=== PATIENT | female | born 1990 | race Caucasian/White ===

== ENCOUNTER 2022-11-23 12:55 | Day surgery (SDC) | payer OTHER, SELFPAY ==
[2022-11-23 08:01] VITALS: BMI 25.4
--- NOTE | 2022-11-23 08:12 | PC.NURSE ---
Report to the Outpatient Waiting Room, entrance under the green pavilion located off [facility], at time __1:00PM on date __11/23/22 . Planned Procedure Time: __3:00PM . Time changes happen often and if your time is changed the preop area will call you the afternoon before. - You and your visitor will be asked to self-screen and do not enter if you have any COVID symptoms. - A mask is optional within the hospital at this time. Patients may have clear liquids (water, carbonated beverages, clear teas, apple juice) until 3 hours prior to surgery with a maximum of 20 ounces. - No food from midnight until time of surgery Take the following medications with a SIP of water the morning of surgery: __NONE DO NOT STOP ANY OF YOUR OTHER PRESCRIPTION MEDICATIONS PRIOR TO SURGERY ?EXCEPT THE FOLLOWING Medications to discontinue per physician NONE Date to take last dose Please no make-up, nail croatian, hairspray, perfume, deodorant, or body powder the day of surgery. No jewelry (including any body piercings) or valuables the day of surgery, leave them at home. Please take a shower or bath the night before, or the morning of, surgery with an antibacterial soap. Wear comfortable, loose fitting clothing. Children are encouraged to wear pajamas. - Jewelry must be removed prior to entering the operating room. Rings and piercings that are not removed may be cut off. - The hospital will not accept responsibility for valuables. - Please leave all valuables, including medications, at home the day of surgery. If you are going home after surgery, a licensed route sales delivery driver must drive you home. - NO public transportation without another adult if you receive anesthesia. - We recommend that an adult stay with you for 24 hours following discharge. - We also recommend that you do not drive, make important decision, drink alcoholic beverages, or take any drugs that were not prescribed by your health care provider for at least 24 hours after your discharge time. Follow any additional instructions given to you from your surgeon. If you or anyone in your household have experienced Covid symptoms in the past week, please notify your surgeon or the nurse liaison at the phone number below for possible testing. Telephone instructions given to ___PATIENT and asked if any additional questions and then verbalized understanding. Patient advised to call surgeon office or pre surgery nurse liaison [phone] if any additional questions.
[2022-11-23] MEDS: ACETAMINOPHEN 500 MG TABLET 1000 MG PO (13:27)
[2022-11-23 13:32] VITALS: BP 118/72; RESP 16; O2SAT 100
--- NOTE | 2022-11-23 14:28 | P.PNAN_ITS ---
Anes - Initial Pre Proc Eval Procedure: Operation Date: 11/23/22 15:00 Proposed Procedures p Suction Dilatation and Curettage - Santiago Davis MD Date/Time: 11/23/22 14:28 Surgeon: Santiago Davis MD Pre Op Diagnosis: missed AB Patient Data Age: 32 Gender: F Height: 1.6 m Weight: 63.8 kg Last Vital Signs Resp 16 11/23/22 13:32 BP 118/72 11/23/22 13:32 Pulse Ox 100 11/23/22 13:32 O2 Del Method Room Air 11/23/22 13:32 Allergies Allergy/AdvReac Type Severity Reaction Status Date / Time No Known Allergies Allergy Verified 11/23/22 12:57 Home Medications Medication Instructions Recorded Confirmed Type No Home Medications 11/23/22 11/23/22 History Laboratory Tests 11/23/22 13:24 Blood Type O Positive Antibody Screen Negative Screen Not Reportable Baby's Blood Type Not Reportable Baby's CLARE Not Reportable Doses of RhIg Required 0 Patient hx anesthesia problems: none Family hx anesthesia problems: none Results Review: All pre-operative results and documents have been reviewed as part of the pre-operative evaluation. PMFSH Past Medical History Medical History (Updated 11/23/22 @ 14:28 by Len Roa MD) Missed ab Social History Social History Smoking status: Never smoker Living arrangements: with family Additional living arrangements comments: SPOUSE & CHILD Spiritual care concerns: No Anes - Eval Final PreProcedure Day of Procedure 11/23/22 14:28 Patient weight: normal Heart: regular rate and rhythm Lungs: clear to auscultation Airway: Mallampati scale class II Neurological: alert and oriented Last oral intake: >/= 8 hours ASA classification: II Emergent: no Anesthetic plan: proceed Anesthesia type and monitoring: general GIVS and standard monitoring Results Review: All pre-operative results and documents have been reviewed as part of the pre- operative evaluation. Informed Consent: The patient's anesthetic plan and its attendant risks and benefits were discussed with the patient/family/POA. Questions were solicited and answers provided to the satisfaction of the patient/family/POA.
--- NOTE | 2022-11-23 15:05 | WPDHPUPDATE1 ---
History and Physical Update Update Date/Time: 11/23/22 15:05 History and Physical has been reviewed, including an updated exam of the patient. There are NO changes in the patient's condition. Risks, benefits, and alternatives have been discussed and questions answered. Patient agrees to proceed with procedure.
[2022-11-23] MEDS: KETOROLAC 30 MG/ML VIAL (*BKC) IV PUSH (15:33)
[2022-11-23] MEDS: LIDOCAINE HCL 1% PF INJ 5 ML VIAL 10 ML INFILTRATE (15:33)
--- NOTE | 2022-11-23 15:45 | W.PM.PROC2 ---
Procedure Note - Detailed Date of Procedure 11/23/22 Pre-op Diagnosis missed AB Post-op Diagnosis Same Procedure Performed Suction D&C Surgeon Santiago Davis MD Anesthesia MAC Indications missed Findings normal-appearing vulva vagina and cervix to. Moderate amount of products conception within the uterus. 8 cm uterus Description of Procedure the patient was taken the operating room. She was prepped and draped in dorsal lithotomy position after induction of mac anesthesia. A speculum was placed in the vagina. Cervix grasped with tenaculum. The cervix was dilated to about 1 cm Using Desai dilators. A 10. [place]rugu[place] curved curette was used to perform suction D&C. The curette was introduced and vacuum was applied. The curette was removed over all surfaces of the intrauterine cavity multiple times. This was done until all the surfaces were clear and had the familiar grainy texture they can be felt through the instrument. A sharp curette was then used to curettage all the surfaces. The suction cup was then reapplied 1 more time to remove any debris. The instruments were removed. The speculum and tenaculum were removed. The patient tolerated the procedure well. She was taken recovery room stable condition. Estimated Blood Loss 50 Drains No Packing No Pathology Yes Complications No immediate complications Condition Stable Disposition PACU
[2022-11-23 15:46] VITALS: BP 106/54; PULSE 77; RESP 16; O2SAT 97
[2022-11-23] MEDS: LACTATED RINGERS 1,000 ML 30 ML IV CONT (15:46)
[2022-11-23 16:15] VITALS: BP 105/68; PULSE 76; RESP 15
[2022-11-23 16:26] VITALS: BP 107/71; PULSE 63; RESP 16
== END 2022-11-23 16:32 | disposition home or self-care (01) ==
PROVIDERS: Visit Provider Obstetrics & Gynecology
PROC: (CPT 59820; principal; 2022-11-23 15:00)
DX: O02.1 Missed abortion (principal)
CPT/HCPCS: 59820; 36415; 85461; 86850; 86900; 86901; 88305; A9270; J1885; J2250; J2704; J3010; J7120

== ENCOUNTER 2023-09-10 11:05 | Outpatient (RCR) | payer OTHER, SELFPAY ==
[2023-09-10 12:39] VITALS: BP 131/68; PULSE 90
== END 2023-12-09 23:59 | disposition home or self-care (01) ==
LOC: ANHOBOP 11:05
PROVIDERS: Visit Provider Obstetrics & Gynecology
DX: O36.8330 Maternal care for abnormalities of the fetal heart rate or rhythm, third trimester, not applicable or unspecified (principal); Z3A.33 33 weeks gestation of pregnancy
CPT/HCPCS: 59025

== ENCOUNTER 2023-10-17 20:41 | Outpatient (RCR) | payer OTHER, SELFPAY ==
[2023-10-17] VITALS (13 sets, daily range): BP systolic 125–139; BP diastolic 70–79; PULSE 84–106; O2SAT 99–100
--- NOTE | 2023-10-17 21:53 | PC.NURSE ---
Called Dr. Davis, update on pt, tracing, and blood pressure. Orders received to discharge pt with instructions to keep next scheduled appointment and when to return to the unit.
== END 2023-10-18 16:37 | disposition home or self-care (01) ==
LOC: ANHOBOP 20:41
PROVIDERS: Visit Provider Obstetrics & Gynecology
DX: O36.8130 Decreased fetal movements, third trimester, not applicable or unspecified (principal); Z3A.39 39 weeks gestation of pregnancy
CPT/HCPCS: 59025

== ENCOUNTER 2023-10-23 06:51 | Inpatient (IN) | payer OTHER, SELFPAY ==
[2023-10-23] VITALS (77 sets, daily range): BP systolic 82–149; BP diastolic 47–132; PULSE 59–244; RESP 18; TEMP 36.1–36.8; O2SAT 98–100; BMI 31.1
--- NOTE | 2023-10-23 07:31 | P.PNAN_ITS ---
Anes - Eval Pre Procedure Procedure: labor epidural Date/Time: 10/23/23 07:31 Surgeon: liban Preop Diagnosis: pain during labor Pre Op Diagnosis: IOL Patient Data Age: 33 Gender: F Height: Weight: Allergies Allergy/AdvReac Type Severity Reaction Status Date / Time No Known Allergies Allergy Verified 10/17/23 21:27 Home Medications Medication Instructions Recorded Confirmed Type famotidine 20 mg tablet (Pepcid) 20 mg PO BID 10/08/23 10/17/23 History vitamin-ferrous fumarate 1 tablet PO DAILY 10/08/23 10/17/23 History 40 mg iron-folic acid 1 mg tablet Patient hx anesthesia problems: none Family hx anesthesia problems: none Results Review: All pre-operative results and documents have been reviewed as part of the pre- operative evaluation. PMFSH Past Medical History Medical History (Updated 10/03/23 @ 12:02 by Sanket Segura, PharmD) Missed ab Social History Social History Smoking status: Never smoker Living arrangements: with family Additional living arrangements comments: SPOUSE & CHILD Spiritual care concerns: No Exam Day of Procedure 10/23/23 07:31
[2023-10-23] MEDS: LACTATED RINGERS 1,000 ML 125 ML IV CONT ×3 (07:33→16:08)
[2023-10-23] MEDS: AMPICILLIN 2 GM/NS 100 ML 2 GM/100 ML BAG IVPB (07:35)
--- NOTE | 2023-10-23 07:46 | LDADM ---
This patient, Edwige Marin, was admitted to Labor/Delivery/Recovery 104 on 10/23/23 at 06:51. Plans for labor, pain management and were discussed with patient. Patient/family oriented to hospital policies and general routines including ID bracelet, bed and alarms, visiting hours, pain management, procedures, bathroom and other care routines, personal items, smoking policy, room service/diet and guest tray routines, security routines, and visiting hours. Patient/Family are encouraged to report perceived risks to care and to ask questions if they do not understand what they are told or what they should do. See OBIX for further documentation.
[2023-10-23 07:54] LABS: Basophils Percent Auto 0.3 % (0.2-1.2); Eosinophils Absolute Auto 0.1 K/mm3 (0-0.3); Eosinophils Percent Auto 0.6 % (0-4.4); Hematocrit 39.9 % (37.0-47.0); Hemoglobin 12.7 g/dL (12.0-15.0); Immature Granulocyte Absolute 0.09 K/mm3 (0.00-0.031); Immature Granulocyte Percent A 1.2 % (0-0.5); Lymphocytes Absolute Auto 1.33 K/mm3 (0.9-3.2); Mean Corpuscular HGB Conc 31.8 g/dl (32-36); Mean Corpuscular Hemoglobin 28.8 pg (26-34); Mean Corpuscular Volume 90.5 fl (80-100); Monocytes Absolute Auto 0.5 K/mm3 (0.1-0.6); Monocytes Percent Auto 6.8 % (2.6-8.5); Neutrophils Absolute Auto 5.8 K/mm3 (1.3-6.7); Neutrophils Percent Auto 74.1 % (45.5-73.1); Platelet Count Result 204 k/mm3 (150-375); Red Blood Count 4.41 M/mm3 (4.2-5.4); Red Cell Distribution Width 16.4 % (11.5-14.5); White Blood Count 7.8 K/mm3 (4.5-10.0)
[2023-10-23] MEDS: AMPICILLIN 1 GM/NS 50 ML 1 GM/50 ML BAG IVPB ×2 (11:43→16:08)
[2023-10-23] MEDS: ONDANSETRON INJ 4 MG/2 ML VIAL IV PUSH (16:07)
--- NOTE | 2023-10-23 16:58 | PM.IMHP ---
H&P: HPI History of Present Illness Date/Time: 10/23/23 80:30 Chief Complaint: MIL Narrative: Patient is a 33 year old who presents for induction of labor indicated for chronic HTN, not requiring medications. She denies need for maintenance antihypertensives outside of as well. No hx of preeclampsia in prior pregnancies. Denies headaches, vision changes, chest pain, dyspnea, RUQ Pain or epigastric pain. testing has been reactive since 32 weeks. otherwise complicated by low ferritin, otherwise no issues. Good movement, no ctx, LOF, VB. Review of Systems Review of Systems: All systems reviewed & are unremarkable except as noted in HPI and below PMFSH Past Medical History Medical History Missed ab Social History Social History Smoking status: Never smoker Second hand tobacco smoke exposure: No Substance use: never Do You Feel Safe in your Home?: Yes Lack of Transportation: No Lack of Food: Never True Current Housing: I Have Housing Concerned About Future Housing: No Difficulty Paying Gas/Electric Bills: No Difficulty Paying for Meds: No Currently Unemployed: No Education: Bachelor's Degree Difficulty w/ Childcare or Family Care: No Living arrangements: with family Additional living arrangements comments: SPOUSE & CHILD Spiritual care concerns: No Meds Home Medications and Allergies Home Medications Medication Instructions Recorded Confirmed Type famotidine 20 mg tablet (Pepcid) 20 mg PO BID 10/08/23 10/17/23 History vitamin-ferrous fumarate 1 tablet PO DAILY 10/08/23 10/17/23 History 40 mg iron-folic acid 1 mg tablet Allergies Allergy/AdvReac Type Severity Reaction Status Date / Time No Known Allergies Allergy Verified 10/17/23 21:27 Vital Signs Vital Signs - 24 hr 10/23/23 07:40 10/23/23 07:45 10/23/23 08:00 Temperature Pulse Rate 84 80 81 Blood Pressure 131/87 135/87 121/75 Pulse Oximetry Oxygen Delivery 10/23/23 08:15 10/23/23 08:30 10/23/23 09:00 Temperature Pulse Rate 84 76 81 Blood Pressure 116/74 102/52 L 115/77 Pulse Oximetry Oxygen Delivery 10/23/23 09:15 10/23/23 07:30 10/23/23 09:32 Temperature 96.9 F L Pulse Rate 80 82 Blood Pressure 129/63 93/58 L Pulse Oximetry Oxygen Delivery 10/23/23 09:33 10/23/23 09:45 10/23/23 10:00 Temperature Pulse Rate 81 74 86 Blood Pressure 115/61 132/72 123/70 Pulse Oximetry Oxygen Delivery 10/23/23 10:15 10/23/23 10:30 10/23/23 10:45 Temperature Pulse Rate 71 68 71 Blood Pressure 115/47 L 115/53 L 118/49 L Pulse Oximetry Oxygen Delivery 10/23/23 11:00 10/23/23 11:15 10/23/23 11:30 Temperature 97 F L Pulse Rate 72 84 80 Blood Pressure 127/88 125/81 132/73 Pulse Oximetry Oxygen Delivery 10/23/23 11:45 10/23/23 12:00 10/23/23 12:15 Temperature Pulse Rate 80 85 77 Blood Pressure 126/65 123/65 114/55 L Pulse Oximetry Oxygen Delivery 10/23/23 12:30 10/23/23 12:45 10/23/23 13:00 Temperature Pulse Rate 81 78 83 Blood Pressure 114/59 L 118/71 133/75 Pulse Oximetry Oxygen Delivery 10/23/23 13:15 10/23/23 13:30 10/23/23 13:45 Temperature Pulse Rate 94 84 88 Blood Pressure 130/77 127/83 128/76 Pulse Oximetry Oxygen Delivery 10/23/23 14:00 10/23/23 14:11 10/23/23 14:16 Temperature Pulse Rate 77 Blood Pressure 133/79 Pulse Oximetry 99 99 Oxygen Delivery 10/23/23 14:21 10/23/23 14:22 10/23/23 14:24 Temperature Pulse Rate 87 93 Blood Pressure 128/71 127/65 Pulse Oximetry 100 Oxygen Delivery 10/23/23 14:25 10/23/23 14:26 10/23/23 14:28 Temperature Pulse Rate 92 88 83 Blood Pressure 120/65 117/61 136/62 Pulse Oximetry 99 Oxygen Delivery 10/23/23 14:31 10/23/23 14:32 10/23/23 14
--- NOTE | 2023-10-23 17:10 | PM.OBPNLAB ---
Pain Control Date/time seen: 10/23/23 12:30 Comments: Doing well, mild cramping Pelvic Exam Dilation (cm): 2 Effacement (%): 70 station: -2 Amniotic membrane status: Ruptured Comments: AROM performed with clear fluid Assessment and Plan Pitocin rate (mU/min): 8 Assessment: induction ongoing Plan: continuous present management
--- NOTE | 2023-10-23 21:39 | PM.OBPRVD ---
OB - Vaginal Delivery Note Procedure Delivery date: 10/23/23 Events: Chronic Hypertension Induction method: Per Pitocin Protocol Delivery augmentation: Rupture of Membranes Delivery monitor: External FHT and External Uterine Route of delivery: Episiotomy description: None Laceration Description: Perineal - 2nd Degree Delivery repair: vicryl Specimen: No Quantitative Blood Loss (ml): 100 Anesthesia type: Epidural Disposition: Floor Complications: No immediate complications Narrative: See H&P and notes for details on patient's admission and labor. She progressed to complete cervical dilation and at the appropriate time began pushing. With adequate expulsive efforts by the mother, the baby's head was delivered without difficulty. Nuchal cord was not present. The baby's left shoulder was anterior and delivered under the pubic symphysis without difficulty. The posterior shoulder and the rest of the baby delivered without difficulty. The umbilical cord was doubly clamped and cut after 60 seconds of delayed cord clamping. Care of the was then assumed by the nursing staff. [place] Baby Date of : 10/23/23 Time of : 15:35 Weeks of gestation at delivery: 39 gender: Male presentation: vertex position: Right Occiput Anterior Placenta delivery description: Expressed and Normal Configuration Cord Vessel Description: 3 Vessels and Around Body
[2023-10-24] MEDS: ACETAMINOPHEN 325 MG TABLET 650 MG PO (02:47)
[2023-10-24] MEDS: IBUPROFEN 600 MG TABLET PO (02:48)
[2023-10-24 02:50] VITALS: BP 117/74; PULSE 92; RESP 18; TEMP 37.1
[2023-10-24 04:24] LABS: Alanine Aminotransferase 17 U/L (6-35); Albumin Level 2.5 g/dL (3.5-5.1); Alkaline Phosphatase 104 U/L (38-126); Anion Gap 4 mmol/L (4-12); Aspartate Amino Transferase 27 U/L (14-36); Bilirubin,Total 0.4 mg/dL (0.2-1.3); Blood Urea Nitrogen 4 mg/dL (7-17); Calcium 8.4 mg/dL (8.4-10.2); Carbon Dioxide 20 mmol/L (22-30); Chloride 108 mmol/L (98-107); Estimated CRCL calculation 132 ml/min; Estimated Glomerular Filt Rate > 60; Glucose 98 mg/dL (65-110); Potassium 3.3 mmol/L (3.4-5.0); Sodium 132 mmol/L (137-145)
[2023-10-24 07:56] LABS: Hematocrit 33.5 % (37.0-47.0); Hemoglobin 10.6 g/dL (12.0-15.0)
[2023-10-24 08:00] VITALS: PULSE 66; RESP 18; O2SAT 99
--- NOTE | 2023-10-24 08:07 | WPDANLDPN2 ---
Anes-Prog Note L&D Date/Time: 10/24/23 08:07 Neuro status: Neuro function grossly intact. Vital Signs: Last Vital Signs Temp 37.1 C 10/24/23 02:50 Pulse 92 10/24/23 02:50 Resp 18 10/24/23 02:50 BP 117/74 10/24/23 02:50 Pulse Ox 99 10/23/23 21:21 O2 Del Method Room Air 10/23/23 07:30 Pain score (VAS): 0 I/O: Intake & Output 10/23/23 10/24/23 10/24/23 23:59 07:59 15:59 Intake Total 402.1 Output Total 150 500 Balance 252.1 -500 Patient feedback: Patient satisfied with anesthetic care.
--- NOTE | 2023-10-24 08:37 | PM.OBPNVD ---
OB - PN: Subj Subjective Date/time seen: 10/24/23 08:37 Patient comments: no complaints, pain well controlled, incisional pain, tolerating diet and flatus present OB - PN: Obj Data Labs 10/24/23 07:34 10/24/23 04:06 Labs: Laboratory Results - last 24 hr 10/23/23 10/24/23 10/24/23 07:31 04:06 07:34 Hgb 10.6 L Hct 33.5 L Sodium 132 L Potassium 3.3 L Chloride 108 H Carbon Dioxide 20 L Anion Gap 4 BUN 4 L Creatinine 0.50 L Estim Creat Clear Calc 132 Estimated GFR > 60 Glucose 98 Calcium 8.4 Total Bilirubin 0.4 AST 27 ALT 17 Alkaline Phosphatase 104 Total Protein 5.0 L Albumin 2.5 L Blood Type O Positive Antibody Screen Negative OB - PN A/P Plan day: 1 Plan: routine care Comments: No problems, routine care Time Spent With Patient Time: Total time spent is greater than 50% in coordination of care (as documented) at patient's floor/unit and/or counseling patient: Exam Const: General: comfortable, no acute distress and alert Resp: Effort & Inspection: normal respiratory effort Auscultation: no crackles, no rales and no rhonchi Cardio: Rate: regular rate Heart sounds: no click, no murmurs and no rubs GI: Inspection: non-distended GI Palp: No Tenderness to palpation present (GI) Auscultation: normal bowel sounds Other: Incision - CDI Extrem: General: normal to inspection, no pedal edema and no calf tenderness
[2023-10-24 08:50] VITALS: BP 113/56; PULSE 66; RESP 18; TEMP 36.6; O2SAT 99
[2023-10-24] MEDS: DOCUSATE SODIUM 100 MG CAPSULE PO (09:50)
[2023-10-24] MEDS: MULTIVIT/MIN/PREN/FOL AC/IRON TABLET 1 TAB PO (09:50)
--- NOTE | 2023-10-24 13:30 | PC.NURSE ---
[id number] Introductions were made, then consulted with patient to assess needs related to . Mother led the conversation with her?plans to feed?her infant, the?experience so far with the first feeding without a nipple shield, then the nipple shield was introduced last night. Assessment of the breast has visualization of the right nipple everted and the left is inverted. The left everts when stimulated, however; maintains a low profile. Encouraged understanding of the benefits of skin to skin (demonstrating unwrapping and placing upright on her chest), stimulating with massage touch, changing positions to encourage wakefulness, how to watch for early feeding cues, responsive feeding, feeding on demand (aiming for 8-12 times in 24 hours, about every 2-3 hours), milk production, hand expression, building/maintaining a milk supply, duration of feeding, signs of adequate intake/output and how to record on the feeding sheet. Mother works well with her infant with encouragement and education. Reviewed positioning and ear, shoulder, hip alignment, supporting the breast to facilitate a deep latch, asymmetrical latch (off-center), leading with the chin with a big, open, wide gape and body close to mother. latched optimally to the right breast in cross cradle position. Education given to the mother of how to visualize the suckling (with good rocking jaw motion), swallows (dropping of the lower jaw) and how to listen for drinking at the breast (the ka sound) which demonstrates. Infant was able to maintain latch without pain to mother protecting the nipple with optimal positioning, latching and a suck/swallow ratios of 3:1 and 2:1 for 15 minutes. Reviewed comfort measures of healing with a warm, wet washcloth to rinse breast, then leave open to air-dry, good handwashing when or touching the breast/nipples to prevent infection. Mother voiced understanding of skin to skin, stimulating with massage touch, responsive feedings, hand expressed colostrum, talking to infant to encourage if it has been 2 -2.5 hours since the start of the last , to call if does not latch, or if there is discomfort with . Reviewed typical 1st 24 hour behavior vs the 2nd 24 hours. Resources used for education were facilitated with the visual educational handouts/ tool/mom and baby guide. Inpatient/outpatient resources provided with feeding sheet, name written on the communication board, and the mom/baby guide. Parents voiced understanding of information, demonstrated learning and will call if there is a request for assistance. Reported to the Primary RN.
--- NOTE | 2023-10-24 14:06 | PC.NURSE ---
[id number] Purposefully rounded to assess for needs as parents have not called out for assistance since first consult. Visitors are holding holding swaddled . No REM sleep visualized at this time 3 hours from the start of the last feeding. Mother shared that she latched infant to the left breast but it hurt so, she used the nipple shield and she hand expressed and gave colostrum to with a spoon. Reminded family of the early feeding cues, stimulating to wake (reviewed massage touch, changing the diaper, burping etc), place [id number] to offer the breast after visualizing the hunger cues. Mother voiced understanding of information and instructed to call if there's pain with latching, doesn't wake to latch, a latch assessment, use of the nipple shield, when feeding cues are seen, assistance with latching, or any questions or concerns. Reported to the Primary RN.
--- NOTE | 2023-10-24 15:00 | PC.NURSE ---
[id number] Parents requested a consult. Infant is [id number] in the position but not latched. Infant placed upright, then we responded with feeding cues to assist infant to the left breast. Mother stated that the latch was painful and we detached . Visual flattening of the nipple was seen. Infant's lower frenulum appears tight. once again latched with mother holding her breast with a sandwich hold to assist to latch deeply to the left breast and maintains with a nice rounded cheek line and good rocking jaw motion. Mother shares that the latch is better and denies pinching pain. Instructed mother to remove infant from the breast if it becomes painful. Once breastfed the nipple looked like it had small blisters and slightly misshaped. Infant placed upright on mothers chest/breast, mother hand expressed some colostrum, then when feeding cues were visualized was latched to the right breast using the cross cradle positioning. latched effectively and mother denies pain with demonstrating swallowing with lower jaw drops. self detached after 15 minutes and nipple was not misshaped, however; a small blood blister in appearance was visualized. We reviewed nipple care with keep nipples clean and dry, optimal latching protecting with a optimal latch, consulting with her medical massage therapist to determine if the tight lower frenulum needs revision and gel pads were given to mother for nipple comfort. Parents have resources available and they voiced understanding of when to call for assistance, questions and concerns. Reported to the Primary RN.
--- NOTE | 2023-10-24 16:54 | PC.NURSE ---
Mother called out requesting bottle for baby; RN discussed the option to pump first to see if she could supplement baby that way; mother stated she is sore and just wants to supplement baby with formula at this time; RN brought pump in room and gave instructions on use to mother. Mother verbalized understanding.
[2023-10-24 18:28] LABS: Rapid Plasma Reagin Non-Reactive (NonReactive)
[2023-10-24 22:15] VITALS: BP 100/62; PULSE 76; RESP 18; TEMP 36.9; O2SAT 97
--- NOTE | 2023-10-25 07:53 | P.PNOB_ITS ---
OB - PN: Subj Subjective Date/time seen: 10/25/23 07:53 Interval history: pp day 2 blood pressures normotensive breast/bottle feeding would like d/c home OB - PN: Obj Data Labs 10/24/23 07:34 10/24/23 04:06 Labs: Laboratory Results - last 24 hr 10/23/23 10/24/23 07:31 07:34 Hgb 10.6 L Hct 33.5 L RPR Non-reactive OB - PN A/P Plan day: 2 Plan: routine care and discharge home Time Spent With Patient Time: Total time spent is greater than 50% in coordination of care (as documented) at patient's floor/unit and/or counseling patient: Review of Systems Review of Systems: All systems reviewed & are unremarkable except as noted in HPI and below Exam 2 Const: General: cooperative, healthy appearing and comfortable Resp: Effort & Inspection: normal respiratory effort Cardio: Rate: regular rate Skin: General skin exam: normal color
--- NOTE | 2023-10-25 07:55 | P.DS_ITS ---
DS: Admitting Diagnosis Discharge Date 10/25/23 Admitting Diagnosis IOL DS: Discharge Diagnosis Discharge Diagnosis (1) Vaginal delivery: Code(s): O80 - Encounter for full-term uncomplicated delivery Status: Acute OB - DS: Summary OB Procedures : None OB Procedures Intrapartum: Spontaneous Vag Delivery OB Procedures: : None Peripartum Data Laceration Description: Perineal - 2nd Degree Episiotomy description: None Time Spent with Patient Time attestation: Total time spent providing and/or coordinating discharge services: DS: Data Data Completed and Pending Pending studies at discharge: Pending at discharge 10/23/23 19:07 Surgical [PTH] Routine Labs on day of discharge: Labs from last 24 hours 10/24/23 10/23/23 07:34 07:31 Hgb 10.6 L Hct 33.5 L RPR Non-reactive Discharge Plan Discharge Attending physician on discharge: Deyvi Tam Discharging Clinician: Karyn Mejia Patient Disposition: Home, Self-Care Activity: pelvic rest Diet: regular Patient Instructions: Antibiotic Form Stand Alone Forms: General Discharge Information Follow-up/Referrals: Deyvi Tam MD [Physician] - 1 Week (bp check) Discharge Medications: New ibuprofen 600 mg Tablet 600 mg PO Q6H PRN (Reason: Cramping) Qty: 30 0RF Continued Care 40 mg iron-1 mg Tablet 1 tablet PO DAILY Discontinued famotidine [Pepcid] 20 mg Tablet 20 mg PO BID Date of admission: 10/23/23 06:51 Primary Care Provider: PHYSICIAN,TRAFFIC OFFICER Admitting Provider: Deyvi Tam Attending physician on admission: Deyvi Tam Condition: Stable
[2023-10-25] MEDS: DOCUSATE SODIUM 100 MG CAPSULE PO (09:35)
[2023-10-25] MEDS: MULTIVIT/MIN/PREN/FOL AC/IRON TABLET 1 TAB PO (09:35)
[2023-10-25 09:49] VITALS: BP 122/64; PULSE 75; RESP 20; TEMP 37.1; O2SAT 98
--- NOTE | 2023-10-25 10:35 | PC.NURSE ---
[id number] Consulted with mother concerning needs and she shared her decision to not latch at this time related to her nipples being very sore. Mother is feeding appropriately for growth of infant, understands stimulating to eat if needed and protecting her milk supply with pumping. Mother pumped and fed her first . has had appropriate feedings in the last 24 hours meets the outcomes for weight, output, blood sugar and jaundice at this time. Reinforced understanding of milk production, transition of milk, signs of adequate intake, transition of stool, prevention/relief of engorgement, plugged ducts, mastitis, responsive watching for feeding cues, feeding on demand, community resources, and when to call a provider and services using the resource of the feeding sheet along with the mom and baby guide. Mother voiced understanding of the information shared, is confident to feed her at home, when to call for assistance, denies any additional assistance or education at this time. Reported to the Primary RN.
[2023-10-26 10:10] VITALS: BP 128/75; PULSE 87; RESP 20; TEMP 36.6; O2SAT 99
== END 2023-10-25 11:57 | disposition home or self-care (01) | DRG 807 ==
LOC: ANHLDR 06:54 → ANHOB2 20:48
PROVIDERS: Admitting Provider Obstetrics & Gynecology; Visit Provider Obstetrics & Gynecology
DX: O10.92 Unspecified pre-existing hypertension complicating childbirth (principal); Z37.0 Single live birth; Z3A.39 39 weeks gestation of pregnancy; O99.824 Streptococcus B carrier state complicating childbirth; O70.1 Second degree perineal laceration during delivery
CPT/HCPCS: 36415; 80053; 85014; 85018; 85025; 86592; 86850; 86900; 86901; 88307; A9270; J0290; J2405; J2795; J7120